=== PATIENT | female | born 1980 | race Caucasian/White ===

== ENCOUNTER 2022-04-03 08:00 | Emergency (ER) | payer BC, SELFPAY ==
[2022-04-03 08:22] VITALS: BP 130/88; PULSE 104; RESP 19; TEMP 36.8; O2SAT 98; BMI 28.6
--- NOTE | 2022-04-03 08:29 | HMH.EDUTC ---
[facility] [place] Disposition Clinical Impression: Viral upper respiratory infection Disposition: Home, Self-Care Condition on Discharge: Good Instructions: DI for COVID-19 (Suspected or Confirmed ), Preventing the Spread of Coronavirus Discharge Instructions, DI for Viral Upper Respiratory Infection -- Adult Additional Instructions: *Monitor Temp, Over the counter Motrin or Tylenol as directed/as needed Tylenol every 4 hours and Motrin every 6 hours (as long as your family doctor has told you that you can take it) for fever or pain. and straight to ER if unable to lower temp less than 101.0 after medication given *Warm salt water gargles may help to soothe the throat *Throat Lozenges *Warm fluids like tea with honey may help to soothe the throat *Sleep elevated *Humidifier/Vaporizer Follow up IMMEDIATELY for new or worsening symptoms or no Noticeable improvement over the next 48-72 hours. 911 for difficulty breathing or swallowing You were tested for today for COVID19 your test result should be back in the next 24-48 hours, you may check your Results on [facility] My Health Portal Make sure to take your Vitamins Vit. C Vit D and Zinc if you can take them Referrals: Provider,Referral, [Primary Care Provider] - As needed Forms: Work/School Release Time of Disposition: 08:36 Medical Decision Making - García Inquiry Pt receiving controlled substance: No García was queried for this patient: No Vital Signs: 04/03/22 08:22 Temperature 98.2 F Temperature Source Oral Pulse Rate [Left] 104 H Respiratory Rate 19 Blood Pressure [Right Arm] 130/88 Blood Pressure Mean [Right Arm] 102 02 Sat by Pulse Oximetry 98 Orders (Tests/Meds): ORDERS Category Date Time Status Covid-19 Nasal PCR ([facility]) Routine Lab 04/03/22 08:23 Ordered [facility] HPI - General Stated complaint: fever, chills, bodyaches Time Seen by Provider: 04/03/22 08:29 Mode of Arrival: Ambulatory Source of Information: Patient Limitations: No Limitations Description of Symptoms (Recalled from Triage Doc. by RN): patient comes in today with complaints of fever, chills, body aches, coughing, congestion. symptoms began 3 days ago. patient works at [employer]. 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 I have reviewed the patient's past medical history: Yes ROS Obtained: Yes All systems reviewed & no additional complaints, Yes Systems reviewed as appropriate & no additional complaints - Constitutional Constitutional: Reports system reviewed and no additional complaints, except as docu, Reports body ache, Reports chills, Reports fatigue, Reports fever(s), Reports headache(s) - ENT Ears, Nose, Mouth, and Throat: Reports system reviewed and no additional complaints, except as docu, Reports nasal congestion - Cardiovascular Cardiovascular: Reports system reviewed and no additional complaints, except as docu - Respiratory Respiratory: Reports system reviewed and no additional complaints, except as docu, Denies shortness of breath, Reports cough, Denies dyspnea Physical Exam - General General appearanc
[2022-04-03 08:44] VITALS: BP 130/88; PULSE 104; RESP 19; TEMP 36.8
== END 2022-04-03 08:50 | disposition home or self-care (01) ==
PROVIDERS: Emergency Provider Nurse Practitioner
DX: U07.1 COVID-19 (principal)
CPT/HCPCS: 99212; C9803; G0463; U0003; U0005

== ENCOUNTER 2022-09-18 16:56 | Emergency (ER) | payer BC, SELFPAY ==
--- NOTE | 2022-09-18 16:54 | ECG_ITS ---
APPROVED REPORT Exam: Resting ECG HR:90 bpm ECG Measurements Heart Rate 90 AXES HI 133 P 65 QRSd 71 QRS 58 QT 342 T 63 QTc 390 Conclusion SINUS RHYTHM WITH FREQUENT VENTRICULAR PREMATURE COMPLEXES POSSIBLE LEFT ATRIAL ENLARGEMENT [-0.1mV P-WAVE IN V1/V2] NONSPECIFIC ST & T-WAVE ABNORMALITY ABNORMAL RHYTHM ECG UNCONFIRMED REPORT Electronically signed by : Mason Tate MD 09/19/2022 13:20:58
[2022-09-18 17:00] VITALS: BP 132/83; PULSE 90; RESP 20; TEMP 36.9; O2SAT 100; BMI 25.7
[2022-09-18 17:31] VITALS: BP 118/84; PULSE 64; RESP 21; O2SAT 99
[2022-09-18 18:03] VITALS: BP 118/82; PULSE 82; RESP 19; O2SAT 99
--- NOTE | 2022-09-18 18:07 | HMH.EDGENADL ---
Discharge Plan Disposition Patient Disposition: Home, Self-Care Condition: Good Referrals Follow up/Referrals: Xavi Moraes MD [Staff Physician] - See instructions Activity Restrictions/Add. Instructions Additional Instructions/Restrictions: 48-hour Holter monitor. Follow-up with cardiology, Dr. Moraes. Call tomorrow morning to make appointment to be seen. Return the emergency department if worsening symptoms. Clinical Impressions Clinical Impression: Frequent PVCs, Atypical chest pain Stand Alone Forms Stand Alone Forms: Work/School Release Instructions Patient Instructions: Premature Ventricular Beats, DI for Atypical Chest Pain Discharge ED Provider: Eric Lott General Adult HPI General Chief complaint: PAIN Stated complaint: chest pain Time Seen by Provider: 09/18/22 18:08 History of Present Illness HPI narrative: Patient states that for the past 2 weeks she has had a feeling of her heart beating funny, skipping beats, beating hard, beating fast. She says she has checked her pulse and it sometimes runs 100 bpm while she is sitting at rest. She has intermittent fleeting sharp chest pains that only last for couple of seconds on the right anterior chest. She has no previous cardiac problems. She does not have diabetes, hypertension, or hyperlipidemia. She says that she is a smoker and her mother and grandmother had heart disease, mother of a heart attack. She is on no medications. No prior cardiac work-up, no prior stress test, echocardiogram, or heart cath. Related Data Allergies Allergy/AdvReac Type Severity Reaction Status Date / Time From BENADRYL Allergy Intermediate SWELLING Uncoded 08/26/17 14:03 OF THROAT, HIVES PFSH [facility] Disclaimer: The information contained in this section may have been updated after the patient was seen, as this information can be updated by other users. Social History Smoking Status: Current every day smoker ROS Obtained: Yes Systems reviewed as appropriate & no additional complaints except as documented Constitutional Constitutional: Denies fever(s), Denies headache(s) and Denies weakness ENT Ears, Nose, Mouth, and Throat: Denies headache(s), Denies nasal discharge and Denies sore throat Cardiovascular Cardiovascular: Reports chest pain, Reports palpitations and Reports rapid heart rate Respiratory Respiratory: Denies shortness of breath and Denies cough Gastrointestinal Gastrointestingal: Denies abdominal pain, constipation, diarrhea or vomiting Genitourinary Female Genitourinary: Denies difficulty voiding, Denies dysuria and Denies flank pain Musculoskeletal Musculoskeletal: Denies numbness Neurologic Neurologic: Denies headache(s), Denies numbness and Denies weakness Endocrine Endocrine: Reports palpitations Physical Exam General General appearance: alert and in no apparent distress Head Head exam: atraumatic and normocephalic Eye Eye exam: Present normal appearance and EOMI ENT ENT exam: Present mucous membranes moist Neck Neck exam: Present normal inspection and trachea midline Chest Chest inspection: Present normal inspection and symmetric chest wall rise Respiratory Respiratory exam: Present normal lung sounds bilaterally; Absent respiratory distress Cardiovascular Cardiovascular exam: Present regular rate, normal rhythm, irregular rhythm, normal heart sounds and other (Regular with extrasystoles. shelter monitor shows frequent unifocal PVCs.) Abdominal Exam Abdominal exam: Present soft and normal bowel sounds; Absent distention, tenderness, guarding, rebound or rigidity Extremities Exam Extremities exam: Present normal inspection Neurological Exam Neurological exam: Present alert and oriented X3 Psychiatric Psychiatric exam: Present normal affect and normal mood Skin Skin exam: Present warm and dry Medical Decision Making García Inquiry Pt receiving controlled substance: No Vital Signs: 09/18/22 17:00 0
--- NOTE | 2022-09-18 18:08 | PC.NURSE ---
pt ambulated to bathroom, back to room, pt hooked back up to monitor.
--- NOTE | 2022-09-18 18:18 | XR_ITS ---
PROCEDURE INFORMATION: Exam: XR Chest Exam date and time: 09/18/2022 6:16 PM Age: 42 years old Clinical indication: Sternal or substernal pain; Patient HX: Chest pain for 2 weeks, states her blood pressure has been up. Smoker. No chest surgeries. Hysterectomy. TECHNIQUE: Imaging protocol: Radiologic exam of the chest. Views: 2 views. COMPARISON: No relevant prior studies available. FINDINGS: Lungs: Unremarkable. No consolidation. Pleural spaces: Unremarkable. No pleural effusion. No pneumothorax. Heart/Mediastinum: Unremarkable. No cardiomegaly. Bones/joints: Unremarkable. IMPRESSION: No acute findings.
[2022-09-18 18:27] LABS: Basophils # 0.2 K/mm3 (0-0.2); Basophils % 1.4 % (0.1-2.0); Eosinophils # 0.3 K/mm3 (0.0-0.4); Eosinophils % 2.4 % (0.1-12.0); Hematocrit 47.2 % (37.0-47.0); Hemoglobin 15.1 g/dL (12.2-16.2); Lymphocytes # 4.5 K/mm3 (0.7-4.5); Lymphocytes % 31.1 % (10-50); Mean Corpuscular HGB Conc 32.1 g/dL (31.8-35.4); Mean Corpuscular Hemoglobin 32.2 pg (27.0-31.2); Mean Corpuscular Volume 100.3 fl (81-99); Mean Platelet Volume 8.6 fl (7.4-10.4); Monocytes # 0.6 K/mm3 (0.1-1.0); Neutrophils # 8.9 K/mm3 (1.8-7.8); Neutrophils % 61.1 % (37.0-80.0); Platelet Count 342 K/mm3 (142-424); Red Cell Distribution Width 13.3 % (11.5-17.5); White Blood Count 14.6 K/mm3 (4.8-10.8)
[2022-09-18 18:30] VITALS: BP 125/75; PULSE 69; RESP 20; O2SAT 100
[2022-09-18 18:31] LABS: Anion Gap 13.2 mEq/L (5-15); Blood Urea Nitrogen 8 mg/dl (7-17); Calcium 8.9 mg/dl (8.4-10.2); Carbon Dioxide 26 mmol/L (22.0-30.0); Chloride 104 mmol/L (98-107); Creatinine Clearance Estimated 89 mL/min (50-200); Estimated Glomerular Filt Rate 68 ml/min (>60); GFR (African American) 83 ML/MIN (>60); Glucose 118 mg/dl (74-100); Potassium 3.2 mmoL/L (3.5-5.1); Sodium 140 mmol/L (136-145)
[2022-09-18 18:43] LABS: Troponin I < 0.01 ng/ml (0.00-0.034)
[2022-09-18 18:48] LABS: Free Thyroxine Index 3.1 ug/dL (5.93-13.13); T4 (Thyroxine) 10.1 ug/dl (5.53-11.0); Triiodothryronine (T3) Uptake 31 % (23.5-40.5)
[2022-09-18 19:18] LABS: Thyroid Stimulating Hormone 1.45 uIU/mL (0.465-4.68)
[2022-09-18 20:47] VITALS: BP 121/78; PULSE 61; RESP 20; TEMP 36.9; O2SAT 99
== END 2022-09-18 20:49 | disposition home or self-care (01) ==
PROVIDERS: Emergency Provider Emergency Medicine
DX: I49.3 Ventricular premature depolarization (principal); R07.89 Other chest pain; F17.210 Nicotine dependence, cigarettes, uncomplicated
CPT/HCPCS: 71046; 80048; 84436; 84443; 84479; 84484; 85025; 93005; 93225; 93226; 99285

== ENCOUNTER 2023-12-20 10:23 | Emergency (ER) | payer SELFPAY ==
[2023-12-20 10:30] VITALS: BP 131/64; PULSE 81; RESP 18; TEMP 36.6; O2SAT 98; BMI 29.2
--- NOTE | 2023-12-20 10:56 | EXP.UTC ---
Discharge Plan Disposition Patient Disposition: Home, Self-Care Condition: Good Prescriptions Prescriptions: New mupirocin 2 % ointment 1 applic topical BID Qty: 22 0RF ciprofloxacin HCl 250 mg tablet 250 mg PO BID 7 Days Qty: 14 0RF Referrals Follow up/Referrals: Provider,Referral, MD [Primary Care Provider] - See instructions Activity Restrictions/Add. Instructions Additional Instructions/Restrictions: follow up with pcp keep area clean and dry if worsen return Clinical Impressions Clinical Impression: Folliculitis Instructions Patient Instructions: DI for Folliculitis Discharge ED [facility]Shay [facility] [place] HPI General Stated complaint: poss infected tattoo Mode of Arrival: Ambulatory Source of Information: Patient Limitations: No Limitations Time Seen by Provider: 12/20/23 10:56 Description of Symptoms (Recalled from Triage Doc. by RN): PATIENT C/O POSSIBLE INFECTED TATOO TO RIGHT ARM SINCE FRIDAY HEENT Symptoms (Recalled from RN notes): No Resp Symptoms (Recalled from RN notes): No Skin Symptoms (Recalled from RN notes): Yes MS Symptoms (Recalled from RN notes): No Functional Status (Recalled from RN notes): WNL History of Present Illness Provider Complaint: 43 yr old female presents for redness, swelling and numerous pimple like areas to arm where she had tattoo done on Related Data Previous Rx's Medication Instructions Recorded ciprofloxacin HCl 250 mg tablet 250 mg PO BID 7 days #14 tabs 12/20/23 mupirocin 2 % topical ointment 1 applic topical BID #22 grams 12/20/23 Allergies Allergy/AdvReac Type Severity Reaction Status Date / Time diphenhydramine Allergy Verified 12/20/23 10:40 [From Benadryl] Worker's Comp Is this a Worker's Comp case?: No [facility] Disclaimer: The information contained in this section may have been updated after the patient was seen, as this information can be updated by other users. Medical History (Reviewed 12/20/23 @ 10:57 by Shay Villalobos ([facility]), [employer]) History of cervical cancer Surgical History (Reviewed 12/20/23 @ 10:57 by Shay Villalobos ([facility]), [employer]) History of hysterectomy Family History (Reviewed 12/20/23 @ 10:57 by Shay Villalobos ([facility]), [employer]) Diabetes Grandmother Heart attack Grandfather Grandmother Mother Cancer Grandfather Hypertension Mother Stroke Grandfather Social History (Reviewed 12/20/23 @ 10:57 by Shay Villalobos ([facility]), [employer]) Smoking Status: Current every day smoker alcohol intake: current substance use type: denies use current occupational status: employed Travel in the last 8 weeks: Inside the [place] ROS Obtained: Yes All systems reviewed & no additional complaints except as documented Constitutional Constitutional: Reports system reviewed and no additional complaints, except as documented and Reports as per HPI Eyes Eyes: Reports system reviewed and no additional complaints, except as documented ENT Ears, Nose, Mouth, and Throat: Reports system reviewed and no additional complaints, except as documented Cardiovascular Cardiovascular: Reports system reviewed and no additional complaints, except as documented Respiratory Respiratory: Reports system reviewed and no additional complaints, except as documented Gastrointestinal Gastrointestingal: Reports system reviewed and no additional complaints, except as documented Musculoskeletal Musculoskeletal: Reports system reviewed and no additional complaints, except as documented and Reports as per HPI Integumentary/Breasts Skin/Breast: Reports system reviewed and no additional complaints, except as documented, Reports as per HPI, Reports pruritus, Reports rash and Reports wounds Neurologic Neurologic: Reports system reviewed and no additional complaints, except as documented Endocrine Endocrine: Reports system reviewed and no additional complaints, except as documented Hematologic/Lymphatic Henatologic/Lymphatic: Reports system reviewed and no additional complaints, except as documented Allergic/Immunologic Allergic/Immunologic: Reports system reviewed and no additional complaints, except as documented Physical Exam General General appearance: alert and in no apparent distress Head Head exam: atraumatic Eye Eye exam: Present normal appearance and PERRL ENT ENT exam: Present normal exam, normal oropharynx, mucous membranes moist and TM's normal bilaterally Respiratory Respiratory exam: Present normal lung sounds bilaterally Cardiovascular Cardiovascular exam: Present regular rate and normal rhythm Neurological Exam Neurological exam: Present alert and oriented X3 Skin Skin exam: Present rash Expanded Skin Exam Type of lesion: Present rash Distribution: RUE Body image: 1. redness numerous red bumps with white heads 2. redness numerous red bumps with white heads Medical Decision Making Medical Records Medical records reviewed: Yes I reviewed the patient's medical records. García Inquiry Pt receiving controlled substance: No García was queried for this patient: No Vital Signs: 12/20/23 10:30 Temperature 97.9 F Temperature Source Oral Pulse Rate [Left Brachial] 81 Respiratory Rate 18 Blood Pressure [Left Arm] 131/64 Blood Pressure Mean [Left Arm] 86 Blood Pressure Source [Left Arm] Automatic Cuff Blood Pressure Position [Left Arm] Sitting 02 Sat by Pulse Oximetry 98 Oxygen Delivery Method Room Air Lab Data Lab results reviewed: Yes I reviewed the patient's lab results.
[2023-12-20 11:04] VITALS: BP 131/73; PULSE 76; RESP 19; TEMP 36.7; O2SAT 98
== END 2023-12-20 11:05 | disposition home or self-care (01) ==
PROVIDERS: Emergency Provider Nurse Practitioner Family
DX: L73.9 Follicular disorder, unspecified (principal); F17.210 Nicotine dependence, cigarettes, uncomplicated
CPT/HCPCS: 99212; 99214; G0463

== ENCOUNTER 2023-12-25 11:22 | Emergency (ER) | payer BC, SELFPAY ==
[2023-12-25 12:00] VITALS: BP 131/82; PULSE 76; RESP 19; TEMP 36.8; O2SAT 100; BMI 25.9
--- NOTE | 2023-12-25 12:21 | ED_ITS ---
Discharge Plan Disposition Patient Disposition: Home, Self-Care Condition: Good Prescriptions Prescriptions: No Action mupirocin 2 % ointment 1 applic topical BID Qty: 22 0RF ciprofloxacin HCl 250 mg tablet 250 mg PO BID 7 Days Qty: 14 0RF Referrals Follow up/Referrals: Provider,Referral, MD [Primary Care Provider] - See instructions Activity Restrictions/Add. Instructions Additional Instructions/Restrictions: Go to [facility] Further care and treatment by [facility] Clinical Impressions Clinical Impression: Eye problem Discharge ED Provider: Ara Ulloa [facility] [place] General Stated complaint: Lt eye pain Mode of Arrival: Ambulatory Source of Information: Patient Limitations: No Limitations Time Seen by Provider: 12/25/23 12:22 Description of Symptoms (Recalled from Triage Doc. by RN): PATIENT C/O PAIN AND SWELLING TO LEFT EYE X 2 DAYS HEENT Symptoms (Recalled from RN notes): Yes Resp Symptoms (Recalled from RN notes): No Skin Symptoms (Recalled from RN notes): No MS Symptoms (Recalled from RN notes): No Functional Status (Recalled from RN notes): WNL History of Present Illness Provider Complaint: Patient states that a couple days ago she got some sawdust in her left eye at work and she flushed it out States that for the last few days when she wakes up she has infection all in her eye and has to clean it out states that doesnt feel like it is scratched or anything but she was worried where she was having the infection like drainage in her eye Related Data Previous Rx's Medication Instructions Recorded ciprofloxacin HCl 250 mg tablet 250 mg PO BID 7 days #14 tabs 12/20/23 mupirocin 2 % topical ointment 1 applic topical BID #22 grams 12/20/23 Allergies Allergy/AdvReac Type Severity Reaction Status Date / Time diphenhydramine Allergy Verified 12/20/23 10:40 [From Benadryl] Worker's Comp Is this a Worker's Comp case?: No [facility] Disclaimer: The information contained in this section may have been updated after the patient was seen, as this information can be updated by other users. 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 , INTERNAL COMMUNICATIONS SPECIALIST) History of hysterectomy Family History , INTERNAL COMMUNICATIONS SPECIALIST) Diabetes Grandmother Heart attack Grandfather Grandmother Mother Cancer Grandfather Hypertension Mother Stroke Grandfather Social History , INTERNAL COMMUNICATIONS SPECIALIST) Smoking Status: Current every day smoker alcohol intake: current substance use type: denies use current occupational status: employed Travel in the last 8 weeks: Inside the [place] ROS Obtained: Yes All systems reviewed & no additional complaints except as documented and Yes Systems reviewed as appropriate & no additional complaints except as documented Constitutional Constitutional: Reports system reviewed and no additional complaints, except as documented, Reports as per HPI and Denies fever(s) Eyes Eyes: Reports system reviewed and no additional complaints, except as docume nted, Reports as per HPI, Reports eye discharge and Reports irritation ENT Ears, Nose, Mouth, and Throat: Reports system reviewed and no additional com plaints, except as documented and Reports as per HPI Cardiovascular Cardiovascular: Reports system reviewed and no additional complaints, except as documented and Reports as per HPI Respiratory Respiratory: Reports system reviewed and no additional complaints, except as documented and Reports as per HPI Gastrointestinal Gastrointestingal: Reports system reviewed and no additional complaints, except as documented and as per HPI Physical Exam General General appearance: alert and in no apparent distress Eye Eye exam: Absent conjunctival redness, conjunctival injection, discharge, periorbital swelling or periorbital tenderness Respiratory Respiratory exam: Present normal lung sounds bilaterally; Absent respiratory distress or wheezes Cardiovascular Cardiovascular exam: Present regular rate, normal rhythm and normal heart sounds Neurological Exam Neurological exam: Present alert, oriented X3 and normal gait Medical Decision Making Agrcía Inquiry Pt receiving controlled substance: No García was queried for this patient: No Vital Signs: 12/25/23 12:00 Temperature 98.3 F Temperature Source Oral Pulse Rate [Left Brachial] 76 Respiratory Rate 19 Blood Pressure [Left Arm] 131/82 Blood Pressure Mean [Left Arm] 98 Blood Pressure Source [Left Arm] Automatic Cuff Blood Pressure Position [Left Arm] Sitting 02 Sat by Pulse Oximetry 100 Oxygen Delivery Method Room Air Medical Decision Narrative: Discussed with patient and recommended a through eye exam and patient agreed no drainage or redness noted Called [facility] which is where the patient goes for eye exams and they advised to have her come on down at 1-120 to be evaluated and patient agreed
[2023-12-25 12:25] VITALS: BP 131/82; PULSE 76; RESP 19; TEMP 36.8; O2SAT 100
== END 2023-12-25 12:29 | disposition home or self-care (01) ==
PROVIDERS: Emergency Provider Nurse Practitioner
DX: H53.142 Visual discomfort, left eye (principal); F17.210 Nicotine dependence, cigarettes, uncomplicated
CPT/HCPCS: 99212; 99214; G0463